=== PATIENT | male | born 1980 | race Two or more races ===

== ENCOUNTER 2020-05-06 10:18 | Outpatient (CLI) | payer OTHER | END 2020-05-06 23:59 | disposition home or self-care (01) | LOC: LAB 10:18 | PROVIDERS: ATTEND Specialist | DX: Z01.812 Encounter for preprocedural laboratory examination (principal); Z20.822 Contact with and (suspected) exposure to COVID-19 | CPT/HCPCS: 87426; C9803; U0003 ==

== ENCOUNTER 2020-05-08 07:42 | Day surgery (SDC) | payer OTHER ==
[2020-05-08] MEDS ORDERED: EPINEPHRINE (1:1000) 1 MG/ML AMPUL ONE (08:01)
[2020-05-08] MEDS ORDERED: ANESTHESIA TRAY IN PYXIS 1 EA TRAY MC ONE (08:01)
[2020-05-08] MEDS ORDERED: SCOPOLAMINE PATCH 1 MG/72HR TD ONE (09:43)
== END 2020-05-08 13:55 | disposition home or self-care (01) ==
LOC: DS 07:42
PROVIDERS: ATTEND Specialist
DX: S43.491A Other sprain of right shoulder joint, initial encounter (principal); K21.9 Gastro-esophageal reflux disease without esophagitis; F32.9 Major depressive disorder, single episode, unspecified; E66.01 Morbid (severe) obesity due to excess calories; Z79.899 Other long term (current) drug therapy; X58.XXXA Exposure to other specified factors, initial encounter; Y93.89 Activity, other specified; Y92.89 Other specified places as the place of occurrence of the external cause; Y99.8 Other external cause status
CPT/HCPCS: 29806; 29828; 36415; 86850; A4217; C1713; J0171; J0690; J1100; J1885; J2405; J2704; J3490; 88304-TC; 88311-TC

== ENCOUNTER 2020-08-02 09:00 | Outpatient (CLI) | payer OTHER | END 2020-08-02 23:59 | disposition home or self-care (01) | LOC: LAB 09:00 | PROVIDERS: ATTEND Specialist | DX: Z01.812 Encounter for preprocedural laboratory examination (principal); Z20.822 Contact with and (suspected) exposure to COVID-19 | CPT/HCPCS: C9803 ×2; U0003 ==

== ENCOUNTER 2020-08-07 05:56 | Day surgery (SDC) | payer OTHER ==
[~2020-08-07 05:56] MED LIST: ANESTHESIA TRAY IN PYXIS 1 EA TRAY MC ONE
[2020-08-07] MEDS ORDERED: LIDOCAINE HCL/MPF 1% 30 ML VIAL IJ ONE (06:28)
[2020-08-07] MEDS ORDERED: BUPIVACAINE 0.25% 75 MG/30 ML VIAL ONE (06:29)
[2020-08-07] MEDS ORDERED: FENTANYL PF 100MCG/2ML AMPUL ONE (07:00)
[2020-08-07] MEDS ORDERED: SEVOFLURANE 250 ML BOTTLE IH ONE (07:03)
== END 2020-08-07 09:40 | disposition home or self-care (01) ==
LOC: DS 05:56
PROVIDERS: ATTEND Specialist
DX: G56.02 Carpal tunnel syndrome, left upper limb (principal); E66.3 Overweight; G62.9 Polyneuropathy, unspecified; Z98.890 Other specified postprocedural states; Z79.899 Other long term (current) drug therapy
CPT/HCPCS: 64721; A6402; J0690; J1100; J1885; J2704; J3010; J3490